=== PATIENT | female | born 1945 | race Caucasian/White ===

== ENCOUNTER 2016-05-14 13:57 | Emergency (ER) | payer MEDICAID, MEDICARE ==
[2016-05-14] MEDS ORDERED: PROMETHAZINE HCL 25 MG/ML VIAL IM ONE (14:34)
[2016-05-14 14:48] LABS: HEMATOCRIT 41.8 % (35.0-47.0); HEMOGLOBIN 13.9 gm/dl (11.6-16.0); LYMPH % 13.1 % (16-45); MEAN CELL VOLUME 99.8 fl (81-97); MEAN CORPUSCULAR HEMOGLOBIN 33.2 pg (27-33); MEAN CORPUSCULAR HGB CONC 33.3 g/dl (32-36); MEAN PLATELET VOLUME 10.5 fl (7.4-10.4); MONO % 7.9 % (0-9); PLATELET COUNT 337 K/uL (130-400); RED BLOOD COUNT 4.19 M/uL (3.80-5.40); RED CELL DISTRIBUTION WIDTH 14.1 % (11.5-14.5); WHITE BLOOD COUNT W/O DIFF 5.6 K/uL (4.2-12.2)
[2016-05-14 15:04] LABS: ALB/GLOB RATIO 1.4 (1.1-1.8); ALBUMIN 4.5 gm/dL (3.5-5.0); ANION GAP 16.1 (7-16); BLOOD UREA NITROGEN 12 mg/dL (7-17); CARBON DIOXIDE 25.9 mmol/L (22-30); CREATININE 0.6 mg/dL (0.52-1.04); EST GLOMERULAR FILTRATION RATE > 60 ml/min; GLUCOSE,RANDOM 131 mg/dL (70-110); TOTAL PROTEIN 7.7 gm/dL (6.3-8.2)
[2016-05-14 15:05] LABS: ALKALINE PHOSPHATASE 90 U/L (38-126); ALT/SGPT 24 U/L (9-52); AST/SGOT 31 U/L (14-36); BILIRUBIN,TOTAL 0.79 mg/dL (0.2-1.3); LIPASE 122 U/L (23-300)
[2016-05-14] MEDS ORDERED: MORPHINE SULFATE 5 MG/ML PFS IVP ONE ×2 (15:06→18:29)
[2016-05-14] MEDS ORDERED: 0.9 % SODIUM CHLORIDE 1,000 ML BAG IV ONE (15:07)
--- NOTE | 2016-05-14 15:22 | Emergency Department Record ---
History of Present Illness - General Chief Complaint: Abdominal Pain Stated Complaint: ABD APIN Time Seen by Provider: 05/14/16 14:03 Source: Patient, EMS Mode of Arrival: EMS Limitations: No limitations - History of Present Illness Initial Comments: pt brought in for abd pain and vomiting via ems. she was recently hospitalized for abd pain and had a colonoscopy and egd. she has lost 8lbs since fall Complaint: Abdominal pain Onset/Timin -: Week(s) Location: Periumbilical, LLQ Severity: Moderate Quality: Aching, Sharp Consistency: Constant Improves With: Nothing Worsens With: Nothing Associated Symptoms: Nausea - Related Data Home Medications Medication Instructions Recorded Confirmed Last Taken Amlodipine Besylate [Norvasc] 5 mg PO DAILY 12/10/15 05/14/16 1 Day Ago Hydrocodone/Acetaminophen 1 tab PO Q6H PRN 12/10/15 05/14/16 1 Day Ago [Hydrocodon-Acetaminophn 10-325] Oxybutynin Chloride 5 mg PO DAILY 12/10/15 05/14/16 1 Day Ago Quetiapine Fumarate [Seroquel] 25 mg PO DAILY 12/10/15 05/14/16 1 Day Ago Previous Rx's Medication Instructions Recorded Hydrocodone/Acetaminophen [[place] 0.5 - 1 tab PO TID PRN #7 tab 05/14/16 5mg/325mg] Allergies Allergy/AdvReac Type Severity Reaction Status Date / Time ciprofloxacin [From Cipro] Allergy Intermediate HEADACHE Verified 05/14/16 14:06 ciprofloxacin HCl Allergy Intermediate HEADACHE Verified 05/14/16 14:06 [From Cipro] Penicillins Allergy Intermediate RASH Verified 05/14/16 14:06 codeine AdvReac Severe PT UNSURE Verified 05/14/16 14:06 OF REACTION hydromorphone HCl AdvReac HYPERSENSIT Verified 05/14/16 14:06 [From Dilaudid] IVITY Travel Screening - Travel/Exposure Within Last 30 Days Have you traveled within the last 30 days?: No - Travel/Exposure Within Last Year Have you traveled outside the [place] in the last year?: No - Additonal Travel Details Have you been exposed to anyone with a communicable illness?: No - Travel Symptoms Symptom Screening: None Review of Systems Reviewed: No additional complaints except as noted below Constitutional: Reports: As per HPI. Denies: Chills, Fever, Malaise, Night sweats, Weakness, Weight change Eyes: Reports: As per HPI. Denies: Eye discharge, Eye pain, Photophobia, Vision change ENT: Reports: As per HPI. Denies: Congestion, Dental pain, Ear pain, Epistaxis , Hearing loss, Throat pain Respiratory: Reports: As per HPI. Denies: Cough, Dyspnea, Hemoptysis, Stridor, Wheezes Cardiovascular: Reports: As per HPI. Denies: Arrhythmia, Chest pain, Dyspnea on exertion, Edema, Murmurs, Orthopnea, Palpitations, Paroxysmal nocturnal dyspnea, Rheumatic Fever, Syncope Endocrine: Reports: As per HPI. Denies: Fatigue, Heat or cold intolerance, Polydipsia, Polyuria Gastrointestinal: Reports: As per HPI. Denies: Abdominal pain, Constipation, Diarrhea, Hematemesis, Hematochezia, Melena, Nausea, Vomiting Genitourinary: Reports: As per HPI. Denies: Abnormal menses, Discharge, Dyspareunia, Dysuria, Frequency, Hematuria, Incontinence, Retention, Urgency Musculoskeletal: Reports: As per HPI. Denies: Arthralgia, Back pain, Gout, Joint swelling, Myalgia, Neck pain Skin: Reports: As per HPI. Denies: Bruising, Change in color, Change in hair/ nails, Lesions, Pruritus, Rash Neurological: Reports: As per HPI. Denies: Abnormal gait, Confusion, Headache, Numbness, Paresthesias, Seizure, Tingling, Tremors, Vertigo, Weakness Psychiatric: Reports: As per HPI. Denies: Anxiety, Auditory hallucinations, Depression, Homicidal thoughts, Suicidal thoughts, Visual hallucinations Hematological/Lymphatic: Reports: As per HPI. Denies: Anemia, Blood Clots, Easy bleeding, Easy bruising, Swollen glands Past Medical History - SOCIAL HISTORY Smoking Status: Never smoker Alcohol Use: None Drug Use: None - RESPIRATORY Hx Respiratory Disorders: No - CARDIOVASCULAR Hx Cardio Disorders: Yes Hx Hypertension: Yes - NEURO Hx Neuro Disorders: Yes Hx Dizziness: Yes - GI Hx GI Disorders: Yes Hx GI Bleed: Yes (x2) Hx Pancreatitis: Yes - Hx Genitourinary Disorders: Yes Hx Bladder Problem: Yes (prolapse) - ENDOCRINE Hx Endocrine Disorders: No - MUSCULOSKELETAL Hx Musculoskeletal Disorders: Yes Hx Arthritis: Yes - PSYCH Hx Psych Problems: Yes Hx Anxiety: Yes Hx Depression: Yes - HEMATOLOGY/ONCOLOGY Hx Hematology/Oncology Disorders: Yes Hx Blood Transfusions: Yes Family Medical History Any Significant Family History?: Yes Hx Cancer: Father Hx Heart Disease: Father Physical Exam - General General Appearance: Alert, Oriented x3, Cooperative, Mild distress - Head Head exam: Normal inspection - Eye Eye exam: Normal appearance, PERRL, EOMI Pupils: Normal accommodation - ENT ENT exam: Normal exam, Mucous membranes dry, Normal external ear exam, Normal orophraynx Ear exam: Normal external inspection. negative: External canal tenderness Nasal Exam: Normal inspection. negative: Discharge, Sinus tenderness Mouth exam: Normal external inspection, Tongue normal Teeth exam: Normal inspection. negative: Dental caries Throat exam: Normal inspection. negative: Tonsillar erythema, Tonsillar exudate - Neck Neck exam: Normal inspection, Full ROM. negative: Tenderness - Respiratory Respiratory exam: Normal lung sounds bilaterally. negative: Respiratory distress - Cardiovascular Cardiovascular Exam: Normal rhythm, Normal heart sounds, Tachycardia - GI/Abdominal GI/Abdominal exam: Soft, Normal bowel sounds, Tenderness - Rectal Rectal exam: Deferred - exam: Deferred - Extremities Extremities exam: Normal inspection, Full ROM, Normal capillary refill. negative: Tenderness - Back Back exam: Reports: Normal inspection, Full ROM. Denies: Muscle spasm, Rash noted, Tenderness - Neurological Neurological exam: Alert, CN II-XII intact, Normal gait, Oriented X3 - Psychiatric Psychiatric exam: Normal affect, Normal mood - Skin Skin exam: Dry, Intact, Normal color, Warm Course Vital Signs 05/14/16 13:59 Temperature 99.7 F H Pulse Rate 126 H Respiratory 20 Rate Blood Pressure 132/92 Pulse Ox 98 - Reevaluation(s) Reevaluation #1: 05/14/16 18:34 [facility] records were reviewed and pt had recent neg ct, colonoscopy and workup. pt is out of her norco. Medical Decision Making - Lab Data Result diagrams: 05/14/16 14:35 05/14/16 14:35 Lab Results 05/14/16 Range/Units 14:35 WBC 5.6 (4.2-12.2) K/uL RBC 4.19 (3.80-5.40) M/uL Hgb 13.9 (11.6-16.0) gm/dl Hct 41.8 (35.0-47.0) % MCV 99.8 H (81-97) fl MCH 33.2 H (27-33) pg MCHC 33.3 (32-36) g/dl RDW 14.1 (11.5-14.5) % Plt Count 337 (130-400) K/uL MPV 10.5 H (7.4-10.4) fl Gran % 79.0 (47-80) % Lymphocytes % 13.1 L (16-45) % Monocytes % 7.9 (0-9) % Eosinophils % 0.0 (0-6) % Basophils % 0.0 (0-6) % Disposition Disposition: Discharge Clinical Impression: Abdominal pain Qualifiers: Abdominal location: generalized Qualified Code(s): R10.84 - Generalized abdominal pain Disposition: Home, Self-Care Condition: (1) Good Instructions: Abdominal Pain (ED) Additional Instructions: follow up with family doctor tomorrow. return sooner if worse. Prescriptions: Hydrocodone/Acetaminophen [[place] 5mg/325mg] 0.5 - 1 tab PO TID PRN #7 tab PRN Reason: Pain - General Forms: Patient Portal Access
[2016-05-14 16:13] LABS: URINE APPEARANCE CLEAR; URINE BILIRUBIN NEGATIVE (NEGATIVE); URINE BLOOD NEGATIVE (NEGATIVE); URINE COLOR YELLOW; URINE GLUCOSE (UA) NEGATIVE (NEGATIVE); URINE KETONE NEGATIVE (NEGATIVE); URINE LEUKOCYTE ESTERASE NEGATIVE (NEGATIVE); URINE NITRITE NEGATIVE (NEGATIVE); URINE PROTEIN NEGATIVE (NEGATIVE); URINE UROBILINOGEN 0.2 E.U./dL (0.20 - 1.00)
[2016-05-14 18:09] LABS: INFLUENZA A NEGATIVE (NEGATIVE); INFLUENZA B NEGATIVE (NEGATIVE)
[2016-05-14] MEDS ORDERED: HYDROCODONE/APAP 5/325MG TABLET PO ONE (18:41)
[2016-05-14] MEDS ORDERED: ACETAMINOPHEN 325 MG TAB PO ONE (18:44)
== END 2016-05-14 19:02 | disposition home or self-care (01) ==
LOC: ER 13:57
DX: R10.84 Generalized abdominal pain (principal); R11.2 Nausea with vomiting, unspecified; I10 Essential (primary) hypertension
CPT/HCPCS: 99284 ×2; 96376; 96374; 96372; 83605; 83690; 85025; 80053; 81003; 87400; 74022; J2270; J2550; J7030

== ENCOUNTER 2016-05-15 17:43 | Emergency (ER) | payer MEDICARE ==
--- NOTE | 2016-05-15 18:12 | Emergency Department Record ---
History of Present Illness - General Chief Complaint: Chest Pain Stated Complaint: CHEST PAIN Time Seen by Provider: 05/15/16 18:05 Source: Patient Mode of Arrival: Ambulatory Limitations: No limitations - History of Present Illness Initial Comments: The patient is here due to a 2 day hx of substernal L CP. The pain is described as a sharp stabbing pain at times and squeezing at times. She denies any nausea , SCOT, SOB, or sweating with it. The pain seems to be worse with bending and twisting. The patient also has been having palpitations for the last week also. She states she has been on 40 mg of Corgard for the last 12 years and now her [place] refusing to [place] for it. She has been out of the medication for a little over a week. She denies any hx of any cardiac issues and did have a neg Nuclear Stress test last year. MD Complaint: Chest pain Onset/Timin -: Days(s) Onset: During rest Pain Location: Substernal, Left chest Severity: Moderate Severity scale (1-10): 9 Quality: Sharp Consistency: Constant Improves With: Nothing Worsens With: Nothing Treatments Prior to Arrival: None - Related Data Home Medications Medication Instructions Recorded Confirmed Last Taken Amlodipine Besylate [Norvasc] 5 mg PO DAILY 12/10/15 05/15/16 1 Day Ago Hydrocodone/Acetaminophen 1 tab PO Q6H PRN 12/10/15 05/15/16 1 Day Ago [Hydrocodon-Acetaminophn 10-325] Oxybutynin Chloride 5 mg PO DAILY 12/10/15 05/15/16 1 Day Ago Quetiapine Fumarate [Seroquel] 25 mg PO DAILY 12/10/15 05/15/16 1 Day Ago Previous Rx's Medication Instructions Recorded Hydrocodone/Acetaminophen [[place] 0.5 - 1 tab PO TID PRN #7 tab 05/14/16 5mg/325mg] Metoprolol Tartrate [Lopressor] 50 mg PO BID #30 tablet 05/15/16 Allergies Allergy/AdvReac Type Severity Reaction Status Date / Time ciprofloxacin [From Cipro] Allergy Intermediate HEADACHE Verified 05/14/16 14:06 ciprofloxacin HCl Allergy Intermediate HEADACHE Verified 05/14/16 14:06 [From Cipro] Penicillins Allergy Intermediate RASH Verified 05/14/16 14:06 codeine AdvReac Severe PT UNSURE Verified 05/14/16 14:06 OF REACTION hydromorphone HCl AdvReac HYPERSENSIT Verified 05/14/16 14:06 [From Dilaudid] IVITY Travel Screening - Travel/Exposure Within Last 30 Days Have you traveled within the last 30 days?: No Review of Systems Constitutional: Denies: Chills, Fever Eyes: Denies: Eye discharge ENT: Denies: Congestion Respiratory: Denies: Cough, Dyspnea Cardiovascular: Reports: Chest pain. Denies: Arrhythmia, Dyspnea on exertion Endocrine: Denies: Fatigue Gastrointestinal: Reports: Abdominal pain. Denies: Diarrhea, Vomiting Genitourinary: Denies: Dysuria Musculoskeletal: Denies: Back pain Skin: Denies: Bruising Past Medical History - SOCIAL HISTORY Smoking Status: Never smoker Alcohol Use: None Drug Use: None - RESPIRATORY Hx Respiratory Disorders: No - CARDIOVASCULAR Hx Cardio Disorders: Yes Hx Hypertension: Yes - NEURO Hx Neuro Disorders: Yes Hx Dizziness: Yes - GI Hx GI Disorders: Yes Hx GI Bleed: Yes (x2) Hx Pancreatitis: Yes - Hx Genitourinary Disorders: Yes Hx Bladder Problem: Yes (prolapse) - ENDOCRINE Hx Endocrine Disorders: No - MUSCULOSKELETAL Hx Musculoskeletal Disorders: Yes Hx Arthritis: Yes - PSYCH Hx Psych Problems: Yes Hx Anxiety: Yes Hx Depression: Yes - HEMATOLOGY/ONCOLOGY Hx Hematology/Oncology Disorders: Yes Hx Blood Transfusions: Yes Family Medical History Any Significant Family History?: Yes Hx Cancer: Father Hx Heart Disease: Father Physical Exam - General General Appearance: Alert, Oriented x3, Cooperative, No acute distress - Head Head exam: Atraumatic, Normocephalic, Normal inspection - Eye Eye exam: Normal appearance, PERRL - ENT Throat exam: Normal inspection. negative: Tonsillar erythema, Tonsillar exudate - Neck Neck exam: Normal inspection, Full ROM. negative: Tenderness - Respiratory Respiratory exam: Normal lung sounds bilaterally, Chest wall tenderness (The pain is 100% reproducible with palpation of her L anterior chest wall.). negative: Respiratory distress - Cardiovascular Cardiovascular Exam: Regular rate, Normal rhythm, Normal heart sounds - GI/Abdominal GI/Abdominal exam: Soft, Normal bowel sounds. negative: Tenderness - Extremities Extremities exam: Normal inspection, Full ROM, Normal capillary refill. negative: Tenderness - Neurological Neurological exam: Normal gait. negative: Abnormal gait Course Vital Signs 05/15/16 17:58 Temperature 99.0 F Pulse Rate 115 H Respiratory 20 Rate Blood Pressure 150/91 Pulse Ox 98 - Reevaluation(s) Reevaluation #1: The patient is resting quietly and denies any new symptoms. She is requesting an IV narcotic for her chronic pain syndrome. I did explain to her that her tests are all WNL. I do feel the problem of her tachycardia and palpitations are due to her running out of her Corgard. I did consult with Dr. Schilling and he would like to start the patient on Lopressor 50 mg BID. 05/15/16 19:41 Medical Decision Making - Data Complexity MDM Data: Labs Ordered and/or Reviewed, EKG Ordered and/or Reviewed - Lab Data Result diagrams: 05/15/16 18:40 05/15/16 18:40 - EKG Data -: EKG Interpreted by Me EKG: No Acute Changes, Unchanged From Previous Disposition Disposition: Discharge Clinical Impression: Chronic pain Qualifiers: Chronic pain type: chronic pain syndrome Qualified Code(s): G89.4 - Chronic pain syndrome Disposition: Home, Self-Care Condition: (1) Good Instructions: Chest Wall Pain (ED) Additional Instructions: Please continue your chronic pain medicines. Start the Lopressor as directed. Please see your PCP on Friday as planned. Prescriptions: Metoprolol Tartrate [Lopressor] 50 mg PO BID #30 tablet Forms: Patient Portal Access Time of Disposition: 19:47
[2016-05-15] MEDS ORDERED: ASPIRIN 325 MG TABLET PO ONE (18:23)
[2016-05-15] MEDS ORDERED: METOPROLOL TART 5 MG/5 ML VIAL IV ONE (18:29)
[2016-05-15 18:48] LABS: BASO % 0.2 % (0-6); EOS % 0.2 % (0-6); GRAN % 74.8 % (47-80); HEMATOCRIT 39.2 % (35.0-47.0); HEMOGLOBIN 12.8 gm/dl (11.6-16.0); LYMPH % 16.4 % (16-45); MEAN CELL VOLUME 100.3 fl (81-97); MEAN CORPUSCULAR HEMOGLOBIN 32.7 pg (27-33); MEAN CORPUSCULAR HGB CONC 32.7 g/dl (32-36); MEAN PLATELET VOLUME 9.8 fl (7.4-10.4); MONO % 8.4 % (0-9); PLATELET COUNT 318 K/uL (130-400); RED BLOOD COUNT 3.91 M/uL (3.80-5.40); RED CELL DISTRIBUTION WIDTH 13.8 % (11.5-14.5); WHITE BLOOD COUNT W/O DIFF 6.4 K/uL (4.2-12.2)
[2016-05-15 19:00] LABS: ANION GAP 18.1 (7-16); BLOOD UREA NITROGEN 9 mg/dL (7-17); CARBON DIOXIDE 22.9 mmol/L (22-30); CREATINE PHOSPHOKINASE 118 U/L (30-135); CREATININE 0.6 mg/dL (0.52-1.04); EST GLOMERULAR FILTRATION RATE > 60 ml/min; GLUCOSE,RANDOM 145 mg/dL (70-110)
[2016-05-15 19:02] LABS: INR 0.95; PARTIAL THROMBOPLASTIN TIME 25.4 SECONDS (24.5-39.1); PROTHROMBIN TIME (PATIENT) 10.7 SECONDS (9.5-12.1)
[2016-05-15 19:13] LABS: CKMB 2.6 ug/L (0-6); TROPONIN I < 0.012 ng/mL (0.00-0.034)
[2016-05-15] MEDS ORDERED: HYDROCODONE/APAP 10/325 TABLET PO ONE (20:19)
== END 2016-05-15 20:29 | disposition home or self-care (01) ==
LOC: ER 17:43
DX: G89.4 Chronic pain syndrome (principal); R07.2 Precordial pain; I10 Essential (primary) hypertension
CPT/HCPCS: 99284 ×2; 96374; 82550; 85025; 85730; 85610; 82553; 84484; 80048; 93005; 93010; J3490

== ENCOUNTER 2016-09-11 16:33 | Observation (INO) | payer MEDICARE ==
[2016-09-11] MEDS ORDERED: METOPROLOL TART 50 MG TABLET PO ONE (16:59)
[2016-09-11] MEDS ORDERED: HYDROCODONE/APAP 5/325MG TABLET PO ONE (17:00)
--- NOTE | 2016-09-11 17:04 | Emergency Department Record ---
History of Present Illness - General Chief Complaint: Abdominal Pain Stated Complaint: CHEST PAIN Time Seen by Provider: 09/11/16 16:55 Source: Patient Mode of Arrival: EMS Limitations: No limitations - History of Present Illness Initial Comments: The patient is here due to having abdominal pain for 3 days. The pain is in the epigastric area and is aching at times. She denies any vomiting but has been nauseated and did have one loose stool today. The patient does have a hx of pancreatitis and this feels like that. She states the pain does radiate to her chest at times but presently denies any CP or SOB. The patient also states she is out of all her medicines including [place]. The patient denies any hx of any abdominal surgeries. MD Complaint: Abdominal pain Onset/Timin -: Days(s) Location: Epigastric, LUQ Radiation: Chest Severity: Moderate Quality: Aching Consistency: Constant Improves With: Nothing Worsens With: Nothing Associated Symptoms: Denies other symptoms Treatments Prior to Arrival: Other - Related Data Home Medications Medication Instructions Recorded Confirmed Last Taken Amlodipine Besylate [Norvasc] 5 mg PO DAILY 12/10/15 09/11/16 1 Day Ago ~05/13/16 Oxybutynin Chloride 5 mg PO DAILY 12/10/15 09/11/16 1 Day Ago ~05/13/16 Previous Rx's Medication Instructions Recorded Hydrocodone/Acetaminophen [[place] 0.5 - 1 tab PO TID PRN #7 tab 05/14/16 5mg/325mg] Metoprolol Tartrate [Lopressor] 50 mg PO BID #30 tablet 05/15/16 Allergies Allergy/AdvReac Type Severity Reaction Status Date / Time ciprofloxacin [From Cipro] Allergy Intermediate HEADACHE Verified 09/11/16 16:39 ciprofloxacin HCl Allergy Intermediate HEADACHE Verified 09/11/16 16:39 [From Cipro] Penicillins Allergy Intermediate RASH Verified 09/11/16 16:39 codeine AdvReac Severe PT UNSURE Verified 09/11/16 16:39 OF REACTION hydromorphone HCl AdvReac HYPERSENSIT Verified 09/11/16 16:39 [From Dilaudid] IVITY Travel Screening - Travel/Exposure Within Last 30 Days Have you traveled within the last 30 days?: No - Travel/Exposure Within Last Year Have you traveled outside the [place] in the last year?: No - Additonal Travel Details Have you been exposed to anyone with a communicable illness?: No - Travel Symptoms Symptom Screening: None Review of Systems Constitutional: Denies: Chills, Fever Eyes: Denies: Eye discharge ENT: Denies: Congestion Respiratory: Denies: Cough, Dyspnea Cardiovascular: Denies: Arrhythmia Endocrine: Reports: Fatigue Gastrointestinal: Reports: Abdominal pain, Diarrhea, Nausea. Denies: Vomiting Genitourinary: Denies: Dysuria Musculoskeletal: Denies: Arthralgia Past Medical History - SOCIAL HISTORY Smoking Status: Never smoker Alcohol Use: None Drug Use: None - RESPIRATORY Hx Respiratory Disorders: No - CARDIOVASCULAR Hx Cardio Disorders: Yes Hx Hypertension: Yes - NEURO Hx Neuro Disorders: Yes Hx Dizziness: Yes - GI Hx GI Disorders: Yes Hx GI Bleed: Yes (x2) Hx Pancreatitis: Yes - Hx Genitourinary Disorders: Yes Hx Bladder Problem: Yes (prolapse) - ENDOCRINE Hx Endocrine Disorders: No - MUSCULOSKELETAL Hx Musculoskeletal Disorders: Yes Hx Arthritis: Yes - PSYCH Hx Psych Problems: Yes Hx Anxiety: Yes Hx Depression: Yes - HEMATOLOGY/ONCOLOGY Hx Hematology/Oncology Disorders: Yes Hx Blood Transfusions: Yes Family Medical History Any Significant Family History?: Yes Hx Cancer: Father Hx Heart Disease: Father Physical Exam - General General Appearance: Alert, Oriented x3, Cooperative, No acute distress - Head Head exam: Atraumatic, Normocephalic, Normal inspection - Eye Eye exam: Normal appearance, PERRL - Neck Neck exam: Normal inspection, Full ROM. negative: Tenderness - Respiratory Respiratory exam: Normal lung sounds bilaterally. negative: Respiratory distress - Cardiovascular Cardiovascular Exam: Regular rate, Normal rhythm, Normal heart sounds - GI/Abdominal GI/Abdominal exam: Soft, Normal bowel sounds. negative: Rebound, Rigid, Tenderness - Extremities Extremities exam: Normal inspection, Full ROM, Normal capillary refill. negative: Tenderness - Neurological Neurological exam: Alert. negative: Motor sensory deficit - Psychiatric Psychiatric exam: negative: Anxious, Depressed Course Vital Signs 09/11/16 16:44 Temperature 98.7 F Pulse Rate 104 H Respiratory 20 Rate Blood Pressure 151/91 Pulse Ox 99 - Reevaluation(s) Reevaluation #1: The patient is doing better. She denies any CP or SOB. She is still having some L sided AP but it is improved. She did drink her contrast for the CT. 09/11/16 18:36 Reevaluation #2: The patient is doing very well at this time. She is waiting on her abdominal CT and repeat cardiac enzymes. Her care will be turned over to Dr. Powell at 19:00 due to shift change. 09/11/16 18:57 Medical Decision Making - Data Complexity MDM Data: Labs Ordered and/or Reviewed, EKG Ordered and/or Reviewed - Lab Data Result diagrams: 09/11/16 16:45 09/11/16 16:45 - EKG Data -: EKG Interpreted by Me EKG: No Acute Changes, Unchanged From Previous Disposition Forms: Patient Portal Access
[2016-09-11 17:12] LABS: HEMATOCRIT 44.1 % (35.0-47.0); HEMOGLOBIN 14.1 gm/dl (11.6-16.0); MEAN CELL VOLUME 95.7 fl (81-97); MEAN CORPUSCULAR HEMOGLOBIN 30.6 pg (27-33); MEAN PLATELET VOLUME 10.2 fl (7.4-10.4); PLATELET COUNT 457 K/uL (130-400); RED BLOOD COUNT 4.61 M/uL (3.80-5.40); RED CELL DISTRIBUTION WIDTH 14.3 % (11.5-14.5); WHITE BLOOD COUNT W/O DIFF 5.6 K/uL (4.2-12.2)
[2016-09-11] MEDS ORDERED: 0.9 % SODIUM CHLORIDE 1,000 ML BAG IV ONE (17:14)
[2016-09-11 17:21] LABS: PLATELET ESTIMATE NORMAL (NORMAL)
[2016-09-11 17:24] LABS: ALBUMIN 5.1 gm/dL (3.5-5.0); ALKALINE PHOSPHATASE 109 U/L (38-126); ALT/SGPT 18 U/L (9-52); ANION GAP 18.1 (7-16); AST/SGOT 37 U/L (14-36); BILIRUBIN,TOTAL 0.64 mg/dL (0.2-1.3); BLOOD UREA NITROGEN 19 mg/dL (7-17); CARBON DIOXIDE 21.9 mmol/L (22-30); CREATINE PHOSPHOKINASE 212 U/L (30-135); CREATININE 0.7 mg/dL (0.52-1.04); EST GLOMERULAR FILTRATION RATE > 60 ml/min; GLUCOSE,RANDOM 139 mg/dL (70-110); LIPASE 201 U/L (23-300); TOTAL PROTEIN 9.1 gm/dL (6.3-8.2)
[2016-09-11 17:35] LABS: CKMB 7.3 ug/L (0-6)
[2016-09-11 17:39] LABS: TROPONIN I < 0.012 ng/mL (0.00-0.034)
[2016-09-11] MEDS ORDERED: POTASSIUM CHLORIDE 40 MEQ/15ML 40 MEQ/15 ML ML PO ONE (17:41)
[2016-09-11] MEDS ORDERED: POTASSIUM CHLORIDE 20 MEQ TABLET PO ONE (17:51)
[2016-09-11] MEDS ORDERED: ONDANSETRON HCL IV 4 MG/2 ML VIAL IVP ONE (18:35)
[2016-09-11 21:00] LABS: CREATINE PHOSPHOKINASE 285 U/L (30-135)
[2016-09-11 21:12] LABS: CKMB 8.3 ug/L (0-6)
[2016-09-11 21:23] LABS: TROPONIN I < 0.012 ng/mL (0.00-0.034)
[2016-09-11 21:32] LABS: CKMB RELATIVE INDEX 2.91 % (0-4)
[2016-09-11] MEDS ORDERED: MORPHINE SULFATE 5 MG/ML PFS IVP ONE (21:38)
--- NOTE | 2016-09-11 21:53 | Emergency Department Record ---
History of Present Illness - General Chief Complaint: Abdominal Pain Stated Complaint: CHEST PAIN Time Seen by Provider: 09/11/16 16:55 Source: Patient Mode of Arrival: EMS Limitations: No limitations - History of Present Illness MD Complaint: Abdominal pain Onset/Timin -: Days(s) Location: Epigastric, LUQ Radiation: Chest Severity: Moderate Quality: Aching Consistency: Constant Improves With: Nothing Worsens With: Nothing Associated Symptoms: Denies other symptoms Treatments Prior to Arrival: Other - Related Data Patient : No Home Medications Medication Instructions Recorded Confirmed Last Taken Amlodipine Besylate [Norvasc] 5 mg PO DAILY 12/10/15 09/11/16 1 Day Ago ~05/13/16 Oxybutynin Chloride 5 mg PO DAILY 12/10/15 09/11/16 1 Day Ago ~05/13/16 Previous Rx's Medication Instructions Recorded Hydrocodone/Acetaminophen [[place] 0.5 - 1 tab PO TID PRN #7 tab 05/14/16 5mg/325mg] Metoprolol Tartrate [Lopressor] 50 mg PO BID #30 tablet 05/15/16 Allergies Allergy/AdvReac Type Severity Reaction Status Date / Time ciprofloxacin [From Cipro] Allergy Intermediate HEADACHE Verified 09/11/16 16:39 ciprofloxacin HCl Allergy Intermediate HEADACHE Verified 09/11/16 16:39 [From Cipro] Penicillins Allergy Intermediate RASH Verified 09/11/16 16:39 codeine AdvReac Severe PT UNSURE Verified 09/11/16 16:39 OF REACTION hydromorphone HCl AdvReac HYPERSENSIT Verified 09/11/16 16:39 [From Dilaudid] IVITY Travel Screening - Travel/Exposure Within Last 30 Days Have you traveled within the last 30 days?: No - Travel/Exposure Within Last Year Have you traveled outside the [place] in the last year?: No - Additonal Travel Details Have you been exposed to anyone with a communicable illness?: No - Travel Symptoms Symptom Screening: None Review of Systems Constitutional: Denies: Chills, Fever Eyes: Denies: Eye discharge ENT: Denies: Congestion Respiratory: Denies: Cough, Dyspnea Cardiovascular: Denies: Arrhythmia Endocrine: Reports: Fatigue Gastrointestinal: Reports: Abdominal pain, Diarrhea, Nausea. Denies: Vomiting Genitourinary: Denies: Dysuria Musculoskeletal: Denies: Arthralgia Past Medical History - SOCIAL HISTORY Smoking Status: Never smoker Alcohol Use: None Drug Use: None - RESPIRATORY Hx Respiratory Disorders: No - CARDIOVASCULAR Hx Cardio Disorders: Yes Hx Hypertension: Yes - NEURO Hx Neuro Disorders: Yes Hx Dizziness: Yes - GI Hx GI Disorders: Yes Hx GI Bleed: Yes (x2) Hx Pancreatitis: Yes - Hx Genitourinary Disorders: Yes Hx Bladder Problem: Yes (prolapse) - ENDOCRINE Hx Endocrine Disorders: No - MUSCULOSKELETAL Hx Musculoskeletal Disorders: Yes Hx Arthritis: Yes - PSYCH Hx Psych Problems: Yes Hx Anxiety: Yes Hx Depression: Yes - HEMATOLOGY/ONCOLOGY Hx Hematology/Oncology Disorders: Yes Hx Blood Transfusions: Yes Family Medical History Any Significant Family History?: Yes Hx Cancer: Father Hx Heart Disease: Father Physical Exam - General Limitations: No limitations Course Vital Signs 09/11/16 09/11/16 16:44 19:40 Temperature 98.7 F Pulse Rate 104 H Respiratory 20 Rate Blood Pressure 151/91 Blood Pressure 149/84 [Left Arm] Pulse Ox 99 - Reevaluation(s) Reevaluation #1: 09/11/16 21:40 pt continues to have abd pain. 09/11/16 21:41 pt has inc cpk and mb but normal troponin Medical Decision Making - Lab Data Result diagrams: 09/11/16 16:45 09/11/16 16:45 Lab Results 09/11/16 09/11/16 09/11/16 Range/Units 16:45 16:45 16:45 WBC 5.6 (4.2-12.2) K/uL RBC 4.61 (3.80-5.40) M/uL Hgb 14.1 (11.6-16.0) gm/dl Hct 44.1 (35.0-47.0) % MCV 95.7 (81-97) fl MCH 30.6 (27-33) pg MCHC 32.0 (32-36) g/dl RDW 14.3 (11.5-14.5) % Plt Count 457 H (130-400) K/uL MPV 10.2 (7.4-10.4) fl Neutrophils % 83.0 H (47-80) % Eosinophils % Not Reportable Basophils % Not Reportable Lymphocytes 11.0 L (16-45) % Monocytes 6.0 (0-9) % Platelet Estimate Normal (NORMAL) RBC Morphology Normal Sodium 143 (136-145) mmol/L Potassium 3.2 L (3.5-5.1) mmol/L Chloride 103 (98-107) mmol/L Carbon Dioxide 21.9 L (22-30) mmol/L Anion Gap 18.1 H (7-16) BUN 19 H (7-17) mg/dL Creatinine 0.7 (0.52-1.04) mg/dL Estimated GFR > 60 ml/min Random Glucose 139 H (70-110) mg/dL Lactic Acid (0.7-2.1) mmol/L Calcium 10.4 H (8.5-10.1) mg/dL Total Bilirubin 0.64 (0.2-1.3) mg/dL Direct Bilirubin 0.0 (0-0.3) mg/dL AST 37 H (14-36) U/L ALT 18 (9-52) U/L Alkaline Phosphatase 109 (38-126) U/L Creatine Kinase 212 H 212 H (30-135) U/L CK-MB (CK-2) 7.3 H (0-6) ug/L CK-MB (CK-2) Rel Index 3.40 (0-4) % Troponin I < 0.012 (0.00-0.034) ng/mL Total Protein 9.1 H (6.3-8.2) gm/dL Albumin 5.1 H (3.5-5.0) gm/dL Lipase 201 (23-300) U/L 09/11/16 09/11/16 Range/Units 18:33 20:46 WBC (4.2-12.2) K/uL RBC (3.80-5.40) M/uL Hgb (11.6-16.0) gm/dl Hct (35.0-47.0) % MCV (81-97) fl MCH (27-33) pg MCHC (32-36) g/dl RDW (11.5-14.5) % Plt Count (130-400) K/uL MPV (7.4-10.4) fl Neutrophils % (47-80) % Eosinophils % Basophils % Lymphocytes (16-45) % Monocytes (0-9) % Platelet Estimate (NORMAL) RBC Morphology Sodium (136-145) mmol/L Potassium (3.5-5.1) mmol/L Chloride (98-107) mmol/L Carbon Dioxide (22-30) mmol/L Anion Gap (7-16) BUN (7-17) mg/dL Creatinine (0.52-1.04) mg/dL Estimated GFR ml/min Random Glucose (70-110) mg/dL Lactic Acid 2.0 (0.7-2.1) mmol/L Calcium (8.5-10.1) mg/dL Total Bilirubin (0.2-1.3) mg/dL Direct Bilirubin (0-0.3) mg/dL AST (14-36) U/L ALT (9-52) U/L Alkaline Phosphatase (38-126) U/L Creatine Kinase 285 H (30-135) U/L CK-MB (CK-2) 8.3 H (0-6) ug/L CK-MB (CK-2) Rel Index 2.91 (0-4) % Troponin I < 0.012 (0.00-0.034) ng/mL Total Protein (6.3-8.2) gm/dL Albumin (3.5-5.0) gm/dL Lipase (23-300) U/L Disposition Disposition: Admit Clinical Impression: Elevated CK-MB level Abdominal pain Qualifiers: Abdominal location: left upper quadrant Qualified Code(s): R10.12 - Left upper quadrant pain Disposition: Still a Patient at [facility] Decision to Admit: Admit from ER Decision to Admit Date: 09/11/16 Decision to Admit Time: 21:41 Forms: Patient Portal Access
[2016-09-11] MEDS ORDERED: ACETAMINOPHEN 500 MG TABLET PO PRN (22:13)
[2016-09-11] MEDS: SIMVASTATIN 20 MG TABLET PO SCH (23:17)
[2016-09-11] MEDS: METOPROLOL TART 50 MG TABLET PO SCH (23:18)
[2016-09-11] MEDS: TEMAZEPAM 15 MG CAPSULE PO PRN ×2 (23:18→23:49)
[2016-09-11] MEDS: HYDROCODONE/APAP 5/325MG TABLET PO PRN (23:47)
[2016-09-12] MEDS: HYDROCODONE/APAP 5/325MG TABLET PO PRN ×3 (05:44→18:02)
[2016-09-12 05:45] LABS: CKMB 10.9 ug/L (0-6); TROPONIN I 0.016 ng/mL (0.00-0.034)
[2016-09-12] MEDS: PANTOPRAZOLE SODIUM 40 MG TABLET PO SCH (06:53)
--- NOTE | 2016-09-12 07:16 | CT SCAN REPORT ---
EXAM: ABDOMEN AND PELVIS CT WITH IV CONTRAST HISTORY: ACUTE LEFT UPPER QUADRANT ABDOMINAL PAIN. TECHNIQUE: Contiguous axial images from the lung bases to the symphysis pubis were obtained after the uneventful intravenous administration of 80 ml of Omnipaque 300. Oral contrast was also utilized. Comparison: Abdomen and pelvis CT 08/16/06. FINDINGS: Bilateral breast implants. Unilocular cyst posterior segment right lobe of the liver measuring 10 mm. The spleen is unremarkable. The left kidney is normal. There is a unilocular cyst in the mid to lower right kidney measuring 6.5 cm. Smaller cyst in the mid right kidney. Right renal artery aneurysm which is peripherally calcified measuring 1.5 cm probably unchanged. The adrenals and pancreas are unremarkable. The gallbladder is present. Mildly prominent loops of contrast filled jejunum in the left mid abdomen measuring up to 2.9 cm may reflect bolus effect due to the ingested enteric contrast. The colon is not distended and not well evaluated. Mild aortic calcification. The mesenteric vessels are patent. The uterus is present. No free intraperitoneal fluid or adenopathy. End stage arthritic change of the right femoroacetabular joint. No lytic or blastic lesions. IMPRESSION: 1. NO ACUTE INFLAMMATORY PROCESS OF THE ABDOMEN OR PELVIS. 2. SLIGHT PROMINENCE OF THE JEJUNUM IN THE LEFT UPPER QUADRANT COULD REFLECT BOLUS EFFECT OF THE ENTERIC CONTRAST. 3. BENIGN HEPATIC CYST. 4. BENIGN BOSNIAK TYPE 1 RIGHT RENAL CYST. 5. STABLE 1.5 CM RIGHT RENAL ARTERY ANEURYSM. 6. END STAGE ARTHRITIC CHANGE OF THE RIGHT FEMOROACETABULAR JOINT. JOB NUMBER: [id number] [facility]
[2016-09-12] MEDS ORDERED: 0.9 % SODIUM CHLORIDE 1000ML 1,000 ML IV PRN (09:17)
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
[2016-09-12] MEDS: SERTRALINE HCL 50 MG TABLET PO SCH (09:33)
[2016-09-12] MEDS: AMLODIPINE BESYLATE 5MG TAB PO SCH (09:33)
[2016-09-12] MEDS: METOPROLOL TART 50 MG TABLET PO SCH ×2 (09:34→21:54)
[2016-09-12] MEDS ORDERED: ONDANSETRON 4 MG ODT TABLET SL PRN (10:11)
[2016-09-12] MEDS: OXYBUTYNIN CHLORIDE 5MG TABLET PO SCH (10:40)
[2016-09-12] MEDS: ENOXAPARIN 40 MG/0.4 ML SYR SQ SCH (12:02)
[2016-09-12 13:57] LABS: CKMB 15.9 ug/L (0-6); TROPONIN I 0.014 ng/mL (0.00-0.034)
[2016-09-12 13:58] LABS: CKMB 15.9 ug/L (0-6)
[2016-09-12 14:00] LABS: CKMB RELATIVE INDEX 2.1 % (0-4)
[2016-09-12 14:01] LABS: CKMB RELATIVE INDEX 2.1 % (0-4)
[2016-09-12 14:54] LABS: URINE APPEARANCE CLEAR; URINE BILIRUBIN NEGATIVE (NEGATIVE); URINE BLOOD NEGATIVE (NEGATIVE); URINE COLOR YELLOW; URINE GLUCOSE (UA) NEGATIVE (NEGATIVE); URINE KETONE 15 mg/dL (NEGATIVE); URINE LEUKOCYTE ESTERASE NEGATIVE (NEGATIVE); URINE NITRITE NEGATIVE (NEGATIVE); URINE PROTEIN TRACE (NEGATIVE); URINE UROBILINOGEN 0.2 E.U./dL (0.20 - 1.00)
[2016-09-12 14:59] LABS: AMPHETAMINE SCREEN URINE NOT DETECTED; BARBITURATE SCREEN URINE NOT DETECTED; BENZODIAZEPINE SCREEN URINE DETECTED; COCAINE SCREEN URINE NOT DETECTED; METHADONE SCREEN URINE DETECTED; METHAMPHETAMINE SCREEN NOT DETECTED; OPIATE SCREEN URINE DETECTED; OXYCODONE SCREEN URINE DETECTED; PHENCYCLIDINE SCREEN URINE NOT DETECTED; PROPOXYPHENE SCREEN URINE NOT DETECTED; THC SCREEN URINE NOT DETECTED; TRICYCLIC ANTIDEPRESSANT SCRN DETECTED
--- NOTE | 2016-09-12 18:35 | Discharge Summary ---
Providers Discharge Summary Date: 09/12/16 Date of admission: 09/11/16 22:01 Expected Date of Discharge: 09/12/16 Attending physician: YONI JOY Physical Exam - Vital Signs Vital Signs: Vital Signs - Last 24 Hrs Temp Pulse Pulse Resp BP BP BP 09/12/16 16:00 97.0 F L 60 18 155/81 09/12/16 12:00 100.5 F H 80 20 147/85 09/12/16 10:08 100.2 F H 157/76 09/12/16 08:00 100.2 F H 65 18 157/76 09/12/16 07:54 68 16 09/12/16 06:07 84 16 09/12/16 04:13 98.9 F 68 16 158/82 09/11/16 23:59 78 16 09/11/16 23:53 99.4 F 78 16 174/90 09/11/16 22:33 76 16 09/11/16 22:13 101.3 F H 75 16 155/85 Pulse Ox 09/12/16 16:00 98 09/12/16 12:00 98 09/12/16 10:08 09/12/16 08:00 96 09/12/16 07:54 09/12/16 06:07 94 L 09/12/16 04:13 98 09/11/16 23:59 09/11/16 23:53 97 09/11/16 22:33 98 09/11/16 22:13 99 - General General Appearance: Alert, Oriented x3, Cooperative, No acute distress Limitations: No limitations - Head Head exam: Atraumatic, Normocephalic, Normal inspection - Eye Eye exam: Normal appearance, PERRL - Neck Neck exam: Normal inspection, Full ROM. negative: Tenderness - Respiratory Respiratory exam: Normal lung sounds bilaterally. negative: Respiratory distress - Cardiovascular Cardiovascular Exam: Regular rate, Normal rhythm, Normal heart sounds - GI/Abdominal GI/Abdominal exam: Soft, Normal bowel sounds. negative: Rebound, Rigid, Tenderness - Rectal Rectal exam: Deferred - exam: Deferred - Extremities Extremities exam: Normal inspection, Full ROM, Normal capillary refill. negative: Tenderness - Neurological Neurological exam: Alert, Oriented X3. negative: Motor sensory deficit - Psychiatric Psychiatric exam: negative: Anxious, Depressed Hospitalization - Hospitalization Admission Diagnosis: abd pain w elev cpk and ckmb - Problem List/Discharge Diagnosis (1) Abdominal pain Current Visit: Yes Status: Acute Discharge Diagnosis: Abdominal location: left upper quadrant Qualified Code(s): R10.12 - Left upper quadrant pain Base Code: R10.9 - UNSPECIFIED ABDOMINAL PAIN Comment: 09/13/16- functional vs. gastritis vs. gastroparesis vs. other? no h/o abd surgeries. weight is stable from previous admission. - Abdominal CT & CTA: no acute process. normal lactic acid. - egd/colonoscopy 05/17: retanied food in stomach o/w relatively unremarkable. - Continue PPI - anti emetic prn for nausea - smaller, more frequent low fat/fiber meals - only take medications that are prescribed. - keep hydrated - patient is not intersted in any home health services. - follow with primary physician within 3-5 days of discharge. (2) Elevated CK-MB level Current Visit: Yes Status: Acute Base Code: R74.8 - ABNORMAL LEVELS OF OTHER SERUM ENZYMES Comment: 09/13/16- CK-MB & creatinine kinase are trending down. troponin negative x 3. nuclear stress test 03/2015 negative. unremarkable cardiac cath in 2012. EKG: unchanged. Abdominal CT/CTA are negative for any acute process. - patient denies CP, abdominal pain - i suspect elevated CK-MB secondary to drug abuse noting UDS findings. - follow up with primary physician in 3-5 days and return sooner if needed (3) Depression Current Visit: No Status: Acute Discharge Diagnosis: Depression Type: unspecified Qualified Code(s): F32.9 - Major depressive disorder, single episode, unspecified Base Code: F32.9 - MAJOR DEPRESSIVE DISORDER, SINGLE EPISODE, UNSPECIFIED Comment: 09/13/16- continue zoloft. continue with social works recommendations. Provider information on [email or web address]. (4) Full code status Current Visit: No Status: Acute Base Code: Z78.9 - OTHER SPECIFIED HEALTH STATUS Comment: 09/13/16- Patient remained full code status (5) Hypokalemia Current Visit: Yes Status: Acute Base Code: E87.6 - HYPOKALEMIA Comment: : potassium 3.3. Patient given 20 mEq of PO potassium supplementation. - Hospitalization Course Disposition: Home, Self-Care Hospital Course: 71 yo female admitted w/ abdominal pain and elevated CK-MB. PMHx of pancreatitis, bleeding duodenal ulcer, depression, anxiety, arthritis, controlled substance abuse. Upon presentation VS's relatively stable. plt 457, normal wbc, sodium 143, potassium 3.2, BUN 19, glucose 139, lipase & lactic acid normal. Troponin neg x 2, CK-MB 8.3->10.9, creatinine kinase 285->537. Abdominal CT: no acute process , stable r renal arterial aneurysm. EKG: unchanged from 05/2016. Patient admitted noting elevated CK-MB and further medical management. 09/12/16: Patient lying in bed comfortably. Reports abdominal pain in LUQ. Described as sharp. Associated with palpation of area, eating food and stress. Alleviated by decreased oral intake. associated symptoms include decreased oral intake, nausea, and loose stool for the past 2 days. She denies any diarrhea within the past 24 hours. Denies hematemesis, black or bloody stool, pain with urination, fever, chills, vomiting, chest pain, sob, cough, hematuria , or skin changes. States she hasn't been drinking much water and has felt dehydrated due to warm weather. She reports a large amount of stress stating she recently lost her house as she couldn't afford her mortgage. She states she's now without air conditioning. She states she's low on some of her medications and can't afford to pick them up from the pharmacy until she gets her check next Friday. She's unable to tell me which medications. She typically take seroquel for sleep, however quit this two weeks ago. Receiving [place] from primary care provider, states she's now on 10/325 mg qid prn. Denies h/o abdominal surgery. States she [place] [facility] [place] H/o bleeding duodenal ulcer 1-2 years ago. States she avoid nsaids and has been taking PPI therapy regularly. Last nuclear stress test 03/2015- negative. PCP: Dr. Roblero 09/12/16: approached patient about UDS findings. she denies any methadone use. states her friend gave her a valium a few weeks ago. Spoke to Dr. Tony re pt' s elevated CK-MB and normal troponin. He states she had an unremarkable cardiac cath in 2012. patient also had a negative nuclear stress test in 2016. Obtained EGD/colonoscpy report from 05/17 which are relatively unremarkable aside from retained food in stomach indicating possible gastroparesis. Patient w/o vomiting. Tolerated ensure for lunch. Patient was seen by our social work team and provided therapy resources as outpatient. Patient states she can't afford any of her prescription refills until next Friday though believes she won't run out of any of her meds aside from [place]. 09/13/16 patient lying in bed comfortably. no concerns. slept well last night. tolerated breakfast however states it was too cold. no diarrhea or vomiting. abdominal pain has resolved. afebrile. Procedures: Imaging and X-Rays 09/12/16 14:43 ABDOMEN CTA w contrast [CTA] Stat Abnormal Labs: Abnormal Lab Results 09/12/16 09/12/16 09/12/16 Range/Units 05:15 13:29 13:29 Creatine Kinase 537 H 746 H 746 H (30-135) U/L CK-MB (CK-2) 10.9 H 15.9 H 15.9 H (0-6) ug/L Urine Protein (NEGATIVE) Urine Ketones (NEGATIVE) 09/12/16 Range/Units 14:40 Creatine Kinase (30-135) U/L CK-MB (CK-2) (0-6) ug/L Urine Protein Trace H (NEGATIVE) Urine Ketones 15 mg/dl H (NEGATIVE) Condition at Discharge: (2) Stable Discharge Medications - Discharge Medications Prescriptions: Ondansetron [Zofran Odt] 4 mg SL Q8H PRN #5 PRN Reason: Nausea/Vomiting Home Medications: Ambulatory Orders Amlodipine Besylate [Norvasc] 5 mg PO DAILY 12/10/15 [Last Taken 1 Day Ago ~] Oxybutynin Chloride 5 mg PO DAILY 12/10/15 [Last Taken 1 Day Ago ~05/13/16] Hydrocodone/Acetaminophen [[place] 5mg/325mg] 0.5 - 1 tab PO TID PRN #7 tab [Last Taken Unknown] Metoprolol Tartrate [Lopressor] 50 mg PO BID #30 tablet 05/15/16 [Last Taken Unknown] Ondansetron [Zofran Odt] 4 mg SL Q8H PRN #5 09/13/16 [Last Taken Unknown] Discharge Plan - Discharge Instructions Activity at Discharge: Increase Activity as Tolerated Diet at Discharge: Low Fat, Low Cholesterol Instructions: Acute Abdominal Pain (DC) Additional Instructions: Follow up with your doctor within 3-5 days of discharge and sooner re any new or worsening symptoms. Resume daily medications. Use Zofran as needed for any nausea. Please eat smaller, more frequent meals that are low in fat and fiber. this may help with digestion and stomach upset. Trial supplements like Ensure if needed for nutrition. Return to the ED if getting worse Activity as tolerated
[2016-09-12] MEDS: SIMVASTATIN 20 MG TABLET PO SCH (21:54)
[2016-09-13] MEDS: HYDROCODONE/APAP 5/325MG TABLET PO PRN ×3 (00:03→12:20)
[2016-09-13] MEDS: PANTOPRAZOLE SODIUM 40 MG TABLET PO SCH (06:02)
[2016-09-13 06:28] LABS: ANION GAP 9.4 (7-16); BLOOD UREA NITROGEN 12 mg/dL (7-17); CARBON DIOXIDE 23.6 mmol/L (22-30); CREATINE PHOSPHOKINASE 623 U/L (30-135); CREATININE 0.5 mg/dL (0.52-1.04); EST GLOMERULAR FILTRATION RATE > 60 ml/min; GLUCOSE,RANDOM 130 mg/dL (70-110)
[2016-09-13 06:43] LABS: CKMB 13.2 ug/L (0-6)
--- NOTE | 2016-09-13 07:26 | CT ANGIOGRAM REPORT ---
EXAM: CTA OF THE ABDOMEN HISTORY: PAIN WHEN EATING DIFFUSELY THROUGHOUT THE ABDOMEN. TECHNIQUE: Contiguous axial images from the lung bases to the anterior superior iliac crest were obtained after the uneventful intravenous administration 90 ml of Omnipaque 350. Sagittal and coronal two dimensional reformatted images as well as 3D/MIP reformatted images were obtained for better anatomic delineation. Comparison: Abdomen and pelvis CT 08/16/06. FINDINGS: Bilateral breast implants. Small Bochdalek hernia on the left. The lung bases are clear. Evaluation of the solid abdominal visceral organs is compromised due to the arterial phase. Unilocular cyst posterior segment right lobe of liver measuring 9 mm. The spleen is not enlarged and appears homogeneous. Fusiform splenic artery aneurysm measures 7 mm. Unilocular cyst mid right kidney measures 6.9 cm. Right renal artery aneurysm peripherally calcified measures 17 x 11 mm. There may be a small left renal artery aneurysm measuring 5 mm. The adrenals, pancreas, and gallbladder are normal. The visualized loops of small and large bowel are of normal caliber with no bowel wall thickening. The abdominal aorta demonstrates minimal calcification with no dissection or aneurysm. The diameter is as follows: Level of diaphragmatic hiatus: 1.8 cm Level of the lowest left renal artery: 1.6 cm Aortic bifurcation: 1.4 cm Right common iliac artery: 0.9 cm Left common iliac artery: 0.8 cm The celiac artery, superior mesenteric artery, and intramesenteric artery are patent. The right colic, middle colic, and ileocolic arteries are patent. A solitary right renal artery is patent. Two patent left renal arteries. No free intraperitoneal fluid or adenopathy. No lytic or blastic lesion. IMPRESSION: 1. THE ABDOMINAL AORTA MESENTERIC ARTERIES ARE ALL PATENT. 2. NO ACUTE INFLAMMATORY PROCESS OF THE ABDOMEN. NO INTESTINAL OBSTRUCTION. 3. BENIGN BOSNIAK TYPE 1 RIGHT RENAL CYST. 4. SMALL SPLENIC ARTERY ANEURYSM WELL BILATERAL RENAL ARTERY ANEURYSMS. JOB NUMBER: [id number] [facility]
[2016-09-13] MEDS ORDERED: POTASSIUM CHLORIDE 20 MEQ TABLET PO SCH (10:00)
[2016-09-13] MEDS: ENOXAPARIN 40 MG/0.4 ML SYR SQ SCH (10:31)
[2016-09-13] MEDS: OXYBUTYNIN CHLORIDE 5MG TABLET PO SCH (10:32)
[2016-09-13] MEDS: AMLODIPINE BESYLATE 5MG TAB PO SCH (10:32)
[2016-09-13] MEDS: METOPROLOL TART 50 MG TABLET PO SCH (10:32)
[2016-09-13] MEDS: SERTRALINE HCL 50 MG TABLET PO SCH (10:32)
[2016-09-14] MEDS ORDERED: METOPROLOL TART 50 MG TABLET PO ONE (22:32)
[2016-09-14] MEDS ORDERED: HYDROCODONE/APAP 7.5/325MG TABLET PO ONE (22:33)
[2016-09-14] MEDS ORDERED: PANTOPRAZOLE SODIUM 40 MG TABLET PO ONE (22:34)
[2016-09-14] MEDS ORDERED: ONDANSETRON 4 MG ODT TABLET SL ONE (22:34)
[2016-09-14] MEDS ORDERED: SERTRALINE HCL 50 MG TABLET PO SCH (22:45)
[2016-09-14] MEDS ORDERED: AMLODIPINE BESYLATE 5MG TAB PO SCH (22:45)
[2016-09-14] MEDS ORDERED: SIMVASTATIN 20 MG TABLET PO SCH (22:45)
== END 2016-09-13 13:20 | disposition home or self-care (01) ==
LOC: ER 16:33 → MEDSURG 22:01
PROVIDERS: ADMIT Family Medicine; ATTEND Family Medicine
DX: R10.12 Left upper quadrant pain (principal); R74.8 Abnormal levels of other serum enzymes; F32.9 Major depressive disorder, single episode, unspecified; Z79.899 Other long term (current) drug therapy; I10 Essential (primary) hypertension
CPT/HCPCS: 93041; 99285 ×2; 96374; 96375; 82550 ×3; 83605; 83690; 80076; 82553 ×3; 84484 ×2; 80048 ×2; 81003; 80305; 85027; 74175; 74177; 94760; 93005 ×3; 93010 ×3; G0378 ×3; Q9967 ×2; J2405; J3490; J2270; 99217; 99220; J1650; J7030

== ENCOUNTER 2016-09-14 20:07 | Emergency (ER) | payer MEDICARE ==
[2016-09-14] MEDS ORDERED: ASPIRIN 325 MG TABLET PO ONE (20:23)
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
[2016-09-14 20:51] LABS: BASO % 0.1 % (0-6); GRAN % 71.4 % (47-80); HEMATOCRIT 39.3 % (35.0-47.0); HEMOGLOBIN 13.1 gm/dl (11.6-16.0); LYMPH % 17.2 % (16-45); MEAN CELL VOLUME 92.5 fl (81-97); MEAN CORPUSCULAR HEMOGLOBIN 30.8 pg (27-33); MEAN CORPUSCULAR HGB CONC 33.3 g/dl (32-36); MEAN PLATELET VOLUME 10.6 fl (7.4-10.4); MONO % 11.3 % (0-9); PLATELET COUNT 413 K/uL (130-400); RED BLOOD COUNT 4.25 M/uL (3.80-5.40); RED CELL DISTRIBUTION WIDTH 13.3 % (11.5-14.5); WHITE BLOOD COUNT W/O DIFF 7.4 K/uL (4.2-12.2)
[2016-09-14 20:56] LABS: INR 0.95; PARTIAL THROMBOPLASTIN TIME 27.5 SECONDS (24.5-39.1); PROTHROMBIN TIME (PATIENT) 10.7 SECONDS (9.5-12.1)
[2016-09-14] MEDS: NITROGLYCERIN 0.4MG SL TABLET #25 BTL SL PRN ×2 (20:56→21:07)
[2016-09-14 20:57] LABS: D-DIMER 0.32 mg/L FEU (0-0.59)
[2016-09-14 21:26] LABS: BLOOD UREA NITROGEN 15 mg/dL (7-17); CREATININE 0.5 mg/dL (0.52-1.04); EST GLOMERULAR FILTRATION RATE > 60 ml/min; GLUCOSE,RANDOM 125 mg/dL (70-110)
[2016-09-14 21:38] LABS: TROPONIN I < 0.012 ng/mL (0.00-0.034)
[2016-09-14] MEDS ORDERED: METOPROLOL TART 50 MG TABLET PO ONE (22:42)
[2016-09-14] MEDS ORDERED: HYDROCODONE/APAP 7.5/325MG TABLET PO ONE (22:44)
[2016-09-14] MEDS ORDERED: PANTOPRAZOLE SODIUM 40 MG TABLET PO ONE (22:44)
[2016-09-14] MEDS ORDERED: SIMVASTATIN 20 MG TABLET PO SCH (22:45)
[2016-09-14] MEDS ORDERED: SERTRALINE HCL 50 MG TABLET PO SCH (22:45)
[2016-09-14] MEDS ORDERED: AMLODIPINE BESYLATE 5MG TAB PO SCH (22:45)
[2016-09-14] MEDS ORDERED: ONDANSETRON 4 MG ODT TABLET SL ONE (22:45)
[2016-09-14] MEDS ORDERED: SIMVASTATIN 20 MG TABLET PO ONE (22:49)
[2016-09-14] MEDS ORDERED: SERTRALINE HCL 50 MG TABLET PO ONE (22:50)
[2016-09-14] MEDS ORDERED: AMLODIPINE BESYLATE 5MG TAB PO ONE (22:50)
--- NOTE | 2016-09-16 12:44 | RADIOLOGY REPORT ---
EXAM: CHEST, TWO VIEWS HISTORY: PATIENT HAS CHRONIC CHEST PAIN. TECHNIQUE: Two views of the chest were provided along with the comparison study dated 04/17/15. FINDINGS: The cardiomediastinal silhouette is within normal limits for size and contour. The curt appear unremarkable. There is no radiographic evidence of a focal infiltrate or pleural effusion. Postoperative changes of the right shoulder are noted. No pneumothorax is noted. IMPRESSION: NO RADIOGRAPHIC EVIDENCE OF AN ACUTE INTRATHORACIC PROCESS. JOB NUMBER: [id number] [facility]
== END 2016-09-14 23:30 | disposition home or self-care (01) ==
LOC: ER 20:07
DX: G89.29 Other chronic pain (principal); M25.551 Pain in right hip; R07.2 Precordial pain; R53.1 Weakness; R11.0 Nausea; M21.372 Foot drop, left foot; M21.371 Foot drop, right foot; I10 Essential (primary) hypertension; Z73.6 Limitation of activities due to disability; Z74.09 Other reduced mobility
CPT/HCPCS: 71020; 80048; 82553; 84484; 85025; 85379; 85610; 85730; 93005; 93010; 99284

== ENCOUNTER 2016-09-16 20:44 | Emergency (ER) | payer MEDICARE ==
[2016-09-16 21:21] LABS: EOS % 0.3 % (0-6); GRAN % 65.9 % (47-80); HEMATOCRIT 40.6 % (35.0-47.0); HEMOGLOBIN 13.4 gm/dl (11.6-16.0); LYMPH % 23.4 % (16-45); MEAN CELL VOLUME 93.3 fl (81-97); MEAN CORPUSCULAR HEMOGLOBIN 30.8 pg (27-33); MEAN PLATELET VOLUME 10.4 fl (7.4-10.4); MONO % 10.4 % (0-9); PLATELET COUNT 406 K/uL (130-400); RED BLOOD COUNT 4.35 M/uL (3.80-5.40); RED CELL DISTRIBUTION WIDTH 13.7 % (11.5-14.5); WHITE BLOOD COUNT W/O DIFF 7.4 K/uL (4.2-12.2)
[2016-09-16 21:33] LABS: ALB/GLOB RATIO 1.4 (1.1-1.8); ALBUMIN 4.9 gm/dL (3.5-5.0); ALKALINE PHOSPHATASE 98 U/L (38-126); ALT/SGPT 27 U/L (9-52); ANION GAP 13.3 (7-16); AST/SGOT 35 U/L (14-36); BILIRUBIN,TOTAL 0.87 mg/dL (0.2-1.3); BLOOD UREA NITROGEN 13 mg/dL (7-17); CARBON DIOXIDE 21.7 mmol/L (22-30); CREATININE 0.6 mg/dL (0.52-1.04); EST GLOMERULAR FILTRATION RATE > 60 ml/min; GLUCOSE,RANDOM 112 mg/dL (70-110); TOTAL PROTEIN 8.3 gm/dL (6.3-8.2)
[2016-09-16 21:44] LABS: TROPONIN I 0.013 ng/mL (0.00-0.034)
[2016-09-16] MEDS ORDERED: 0.9% SODIUM CHLORIDE 250ML BAG IV ONE (22:49)
[2016-09-16 23:12] LABS: CKMB 4.1 ug/L (0-6)
[2016-09-16 23:34] LABS: THYROID STIMULATING HORMONE 1.65 uIU/ml (0.465-4.68)
[2016-09-17 01:50] LABS: CREATINE PHOSPHOKINASE 69 U/L (30-135)
[2016-09-17 02:03] LABS: CKMB 3.5 ug/L (0-6)
[2016-09-17 02:11] LABS: TROPONIN I < 0.012 ng/mL (0.00-0.034)
[2016-09-17] MEDS ORDERED: ACETAMINOPHEN 325 MG TAB PO ONE (02:44)
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
[2016-09-17] MEDS ORDERED: METOPROLOL TART 50 MG TABLET PO ONE (03:02)
[2016-09-17] MEDS ORDERED: AMLODIPINE BESYLATE 5MG TAB PO ONE (03:02)
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
== END 2016-09-17 10:17 | disposition home or self-care (01) ==
LOC: ER 20:44
DX: R07.9 Chest pain, unspecified (principal); F41.1 Generalized anxiety disorder; F43.0 Acute stress reaction; G89.29 Other chronic pain
CPT/HCPCS: 80053; 82550; 82553; 84443; 84484; 85025; 85379; 93005; 93010; 99284

== ENCOUNTER 2016-11-08 09:18 | Emergency (ER) | payer MEDICARE ==
[2016-11-08] MEDS ORDERED: 0.9 % SODIUM CHLORIDE 1000ML 1,000 ML IV PRN (09:28)
[2016-11-08] MEDS ORDERED: METOPROLOL TART 50 MG TABLET PO ONE (09:33)
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
[2016-11-08 09:40] LABS: BASO % 0.1 % (0-6); EOS % 0.8 % (0-6); GRAN % 69.6 % (47-80); HEMATOCRIT 37.2 % (35.0-47.0); LYMPH % 19.1 % (16-45); MEAN CELL VOLUME 93.7 fl (81-97); MEAN CORPUSCULAR HEMOGLOBIN 30.2 pg (27-33); MEAN CORPUSCULAR HGB CONC 32.3 g/dl (32-36); MEAN PLATELET VOLUME 10.4 fl (7.4-10.4); MONO % 10.4 % (0-9); PLATELET COUNT 542 K/uL (130-400); RED BLOOD COUNT 3.97 M/uL (3.80-5.40); WHITE BLOOD COUNT W/O DIFF 7.2 K/uL (4.2-12.2)
[2016-11-08 09:52] LABS: ANION GAP 12.2 (7-16); BLOOD UREA NITROGEN 17 mg/dL (7-17); CARBON DIOXIDE 27.8 mmol/L (22-30); CREATININE 0.6 mg/dL (0.52-1.04); EST GLOMERULAR FILTRATION RATE > 60 ml/min; GLUCOSE,RANDOM 124 mg/dL (70-110)
[2016-11-08 10:04] LABS: CKMB 2.5 ug/L (0-6); TROPONIN I 0.013 ng/mL (0.00-0.034)
[2016-11-08] MEDS ORDERED: LORAZEPAM 0.5 MG TABLET PO ONE (13:08)
[2016-11-08 13:33] LABS: CKMB 2.5 ug/L (0-6); TROPONIN I 0.054 ng/mL (0.00-0.034)
== END 2016-11-08 15:42 | disposition short-term general hospital (02) ==
LOC: ER 09:18
DX: R00.2 Palpitations (principal); R79.89 Other specified abnormal findings of blood chemistry; I10 Essential (primary) hypertension
CPT/HCPCS: 80048; 82553; 84484; 85025; 85730; 93005; 93010; 99285

== ENCOUNTER 2017-09-01 17:49 | Emergency (ER) | payer MEDICARE ==
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
[2017-09-01] MEDS: ACETAMINOPHEN 325 MG TAB PO ONE ×2 (18:02→18:06)
--- NOTE | 2017-09-03 13:42 | RADIOLOGY REPORT ---
EXAM: CHEST AND LEFT RIBS HISTORY: LEFT RIB PAIN. TECHNIQUE: Frontal view of the chest and multiple views of the left ribs were obtained. Comparison: Chest x-ray 09/14/16. Encounter: Initial. FINDINGS: CHEST: Frontal view of the chest shows no lung consolidation. The cardiomediastinal silhouette is within normal limits. No pleural effusion or pneumothorax. LEFT RIB SERIES: There is slight deformity of the left posterolateral rib from previous fracture. No acute fractures are identified. Surgical plate and screws are again seen in the proximal right humerus. IMPRESSION: 1. NO ACUTE RADIOGRAPHIC ABNORMALITIES IN THE CHEST. 2. OLD LEFT RIB FRACTURE. NO ACUTE DISPLACED LEFT RIB FRACTURES ARE IDENTIFIED. JOB NUMBER: [id number] MTDD
== END 2017-09-01 19:04 | disposition home or self-care (01) ==
LOC: ER 17:49
DX: S20.212A Contusion of left front wall of thorax, initial encounter (principal); W01.190A Fall on same level from slipping, tripping and stumbling with subsequent striking against furniture, initial encounter; Z91.81 History of falling; I10 Essential (primary) hypertension; Y93.E9 Activity, other interior property and clothing maintenance; Y92.003 Bedroom of unspecified non-institutional (private) residence as the place of occurrence of the external cause
CPT/HCPCS: 99283

== ENCOUNTER 2017-09-02 21:06 | Emergency (ER) | payer MEDICARE ==
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
[2017-09-02 21:58] LABS: HEMATOCRIT 40.5 % (35.0-47.0); HEMOGLOBIN 12.7 gm/dl (11.6-16.0); MEAN CORPUSCULAR HEMOGLOBIN 30.1 pg (27-33); MEAN CORPUSCULAR HGB CONC 31.4 g/dl (32-36); MEAN PLATELET VOLUME 10.4 fl (7.4-10.4); PLATELET COUNT 288 K/uL (130-400); RED BLOOD COUNT 4.22 M/uL (3.80-5.40); RED CELL DISTRIBUTION WIDTH 14.8 % (11.5-14.5); WHITE BLOOD COUNT W/O DIFF 10.6 K/uL (4.2-12.2)
[2017-09-02 22:11] LABS: BLOOD UREA NITROGEN 17 mg/dL (8-23); CREATININE 0.8 mg/dL (0.5-0.9); EST GLOMERULAR FILTRATION RATE > 60 mL/min
[2017-09-02 22:12] LABS: TOTAL PROTEIN 7.6 g/dL (6.6-8.7)
[2017-09-02 22:14] LABS: GLUCOSE,RANDOM 114 mg/dL (74-109)
[2017-09-02 22:17] LABS: ALB/GLOB RATIO 1.3 (1.1-1.8); ALBUMIN 4.3 g/dL (4.0-5.0); ALKALINE PHOSPHATASE 130 U/L (35-104); ALT/SGPT 12 U/L (<33); AST/SGOT 23 U/L (10.0-35.0)
[2017-09-02] MEDS: KETOROLAC 30 MG/ML VIAL IVP ONE (22:56)
[2017-09-02] MEDS: FENTANYL PF 100MCG/2ML VIAL IVP ONE (22:57)
--- NOTE | 2017-09-04 15:03 | CT SCAN REPORT ---
EXAM: CT OF THE THORAX WITHOUT IV CONTRAST HISTORY: FALL. TECHNIQUE: CT of the thorax was obtained without intravenous contrast. Comparison: The lung bases from CT abdomen 09/12/16. FINDINGS: There is a tiny left apical pneumothorax. There is a linear band of opacity in the lingula. Minimal dependent atelectasis. Biapical pleural thickening. No pleural effusion. Limited images of the upper abdomen again show a low density lesion in the right lobe of the liver and a right renal cyst. Calcified bilateral renal artery aneurysms are again seen. Review of the bones show minimally displaced left anterolateral rib fractures six, seven, and eight. Bilateral breast implants are seen. There is no mediastinal hematoma. The ascending aorta is mildly dilated at 37 mm. Mild coronary artery calcifications. IMPRESSION: 1. TINY LEFT APICAL PNEUMOTHORAX. MINIMALLY DISPLACED FRACTURES OF THE LEFT ANTEROLATERAL RIB FRACTURES SIX, SEVEN AND EIGHT. 2. MINIMAL CONTUSION IN THE LINGULA. 3. MILDLY DILATED ASCENDING AORTA, 37 MM. JOB NUMBER: [id number] MTDD
== END 2017-09-02 23:05 | disposition short-term general hospital (02) ==
LOC: ER 21:06
DX: S22.42XA Multiple fractures of ribs, left side, initial encounter for closed fracture (principal); W01.190A Fall on same level from slipping, tripping and stumbling with subsequent striking against furniture, initial encounter; I10 Essential (primary) hypertension; Z91.81 History of falling
CPT/HCPCS: 71250; 80053; 85027; 93005; 93010; 96374; 96375; 99285; J1885

== ENCOUNTER 2018-05-12 12:16 | Emergency (ER) | payer MEDICARE ==
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
== END 2018-05-12 12:49 | disposition home or self-care (01) ==
LOC: ER 12:16
DX: H66.92 Otitis media, unspecified, left ear (principal); J06.9 Acute upper respiratory infection, unspecified
CPT/HCPCS: 99282

== ENCOUNTER 2018-11-21 11:39 | Emergency (ER) | payer MEDICARE ==
[2018-11-21] MEDS ORDERED: 0.9 % SODIUM CHLORIDE 1,000 ML BAG IV ONE (11:48)
[2018-11-21] MEDS ORDERED: MAGNESIUM HYDROXIDE/AL HYDROX 30 ML, LIDOCAINE VISC 2% 15ML 15 ML PO ONE ×2 (11:49)
[2018-11-21 12:12] LABS: ABSOLUTE NEUTROPHIL COUNT 3.04; BASO % 0.2 % (0-6); EOS % 2.5 % (0-6); GRAN % 58.4 % (47-80); HEMATOCRIT 39.5 % (35.0-47.0); HEMOGLOBIN 13.6 gm/dl (11.6-16.0); LYMPH % 27.8 % (16-45); MEAN CELL VOLUME 95.6 fl (81-97); MEAN CORPUSCULAR HEMOGLOBIN 32.9 pg (27-33); MEAN CORPUSCULAR HGB CONC 34.4 g/dl (32-36); MEAN PLATELET VOLUME 10.1 fl (7.4-10.4); MONO % 11.1 % (0-9); PLATELET COUNT 272 K/uL (130-400); RED BLOOD COUNT 4.13 M/uL (3.80-5.40); WHITE BLOOD COUNT W/O DIFF 5.2 K/uL (4.2-12.2)
[2018-11-21 12:24] LABS: BLOOD UREA NITROGEN 14 mg/dL (8-23); CREATININE 0.7 mg/dL (0.5-0.9); EST GLOMERULAR FILTRATION RATE > 60 mL/min
[2018-11-21 12:25] LABS: LIPASE 50 U/L (13-60); TOTAL PROTEIN 6.7 g/dL (6.6-8.7)
[2018-11-21 12:27] LABS: GLUCOSE,RANDOM 125 mg/dL (74-109)
[2018-11-21 12:29] LABS: ALT/SGPT 14 U/L (<33); AST/SGOT 28 U/L (10.0-35.0)
[2018-11-21 12:30] LABS: ALKALINE PHOSPHATASE 96 U/L (35-104)
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
[2018-11-21 12:42] LABS: BILIRUBIN,DIRECT < 0.2 mg/dL (0-0.3)
== END 2018-11-21 13:17 | disposition home or self-care (01) ==
LOC: ER 11:39
DX: K29.00 Acute gastritis without bleeding (principal); I10 Essential (primary) hypertension
CPT/HCPCS: 80048; 80076; 83690; 85025; 99283; 99285; J7030

== ENCOUNTER 2019-02-04 07:01 | Day surgery (SDC) | payer MEDICARE ==
[2019-02-04] MEDS ORDERED: LIDOCAINE 2% MDV (20MG/ML) 20ML VIAL IV ONE (07:02)
[2019-02-04] MEDS ORDERED: PROPOFOL 10 MG/ML VIAL IV ONE (07:02)
[2019-02-04] MEDS ORDERED: ALFENTANIL HCL 500 MCG/1ML, 2ML AMP IV ONE (07:02)
[2019-02-04] MEDS ORDERED: 0.9 % SODIUM CHLORIDE 1000ML 500 ML IV ONE (07:50)
[2019-02-04] MEDS ORDERED: LIDOCAINE 2% MDV (20MG/ML) 20ML VIAL INJ ONE (08:53)
[2019-02-04] MEDS ORDERED: TIMOLOL MALEATE 0.5% 5ML BTL OPTH ONE (08:53)
[2019-02-04] MEDS ORDERED: BRIMONIDINE TARTRATE 0.2% OPTHALMIC DROPS OP ONE (08:53)
[2019-02-04] MEDS ORDERED: EPINEPHRINE 1 MG/ML AMPUL IO ONE (08:53)
[2019-02-04] MEDS ORDERED: TETRACAINE HCL 0.5% OPTH 2ML SOLU OPTH ONE (08:53)
[2019-02-04] MEDS ORDERED: NEOM/BACI/POLY/HC 3.5 GM OPTH OINT OPTH ONE (08:53)
[2019-02-04] MEDS ORDERED: LIDOCAINE 1% MPF 100MG/10ML STERILE-PAK AMPULE SQ ONE (08:54)
[2019-02-04] MEDS ORDERED: TETRACAINE HCL 0.5% 15 ML OPTH BTL OPTH ONE (08:55)
--- NOTE | 2019-02-04 11:05 | OP NOTE CHAMES ---
DATE OF PROCEDURE: 02/04/2019 PREOPERATIVE DIAGNOSIS: Nuclear sclerotic and posterior subcapsular cataract, left eye. POSTOPERATIVE DIAGNOSIS: Nuclear sclerotic and posterior subcapsular cataract, left eye. OPERATION: Phacoemulsification of cataractous lens with implantation of intraocular lens. LENS IMPLANT USED: [employer] Willie Model PCB00 + 19.0 diopters. COMPLICATIONS: None. PROCEDURE IN DETAIL: Following a retrobulbar and facial block, the patient was prepped and draped in the usual fashion for eye surgery. A lid speculum was placed in the left eye after which a 2.4 mm tunnel wound was placed at the temporal limbus and dissected into clear cornea. A paracentesis was placed at 2 oclock hours to the left and right of the initial incision and the chamber deepened with Viscoelastic. The keratome was then used to enter the anterior chamber after which the continuous circular capsulorrhexis was accomplished without difficulty using a bent needle and a Utrata forceps. Hydrodissection and hydrodelineation of the lens was performed after which the nucleus of the lens was removed using the Phaco handpiece in the [id number] technique. The residual cortical material was irrigated and aspirated from the eye after which the bag and chamber were re-examined. The bag was re-inflated with Viscoelastic and the intraocular lens injected into the capsular bag where it centered well. The Viscoelastic was then copiously irrigated and aspirated from the eye after which the temporal tunnel wound and paracentesis were hydrated and the wounds were examined. They were noted to be watertight. The lid speculum was removed from the eye and the eye patched and shielded. The patient was transferred to the recovery room in satisfactory condition and given an appointment to be reexamined in the clinic later today or as directed by Dr. Higgins. JOB NUMBER: [id number] MTDD
== END 2019-02-04 09:40 | disposition home or self-care (01) ==
LOC: SUR 07:01
PROVIDERS: ATTEND Ophthalmology
DX: H25.12 Age-related nuclear cataract, left eye (principal); I10 Essential (primary) hypertension; E78.00 Pure hypercholesterolemia, unspecified; M19.90 Unspecified osteoarthritis, unspecified site; K21.9 Gastro-esophageal reflux disease without esophagitis
CPT/HCPCS: J0171; J3490; J7030

== ENCOUNTER 2019-02-18 08:03 | Day surgery (SDC) | payer MEDICARE ==
[2019-02-18] MEDS ORDERED: LIDOCAINE 2% MDV (20MG/ML) 20ML VIAL IV ONE (08:04)
[2019-02-18] MEDS ORDERED: PROPOFOL 10 MG/ML VIAL IV ONE (08:04)
[2019-02-18] MEDS ORDERED: 0.9 % SODIUM CHLORIDE 1000ML 500 ML IV ONE (09:00)
[2019-02-18] MEDS ORDERED: BRIMONIDINE TARTRATE 0.2% OPTHALMIC DROPS OP ONE (09:52)
[2019-02-18] MEDS ORDERED: EPINEPHRINE 1 MG/ML AMPUL IO ONE (09:52)
[2019-02-18] MEDS ORDERED: TETRACAINE HCL 0.5% OPTH 2ML SOLU OPTH ONE (09:52)
[2019-02-18] MEDS ORDERED: NEOM/BACI/POLY/HC 3.5 GM OPTH OINT OPTH ONE (09:52)
[2019-02-18] MEDS ORDERED: LIDOCAINE 2% MDV (20MG/ML) 20ML VIAL INJ ONE (09:52)
[2019-02-18] MEDS ORDERED: TIMOLOL MALEATE 0.5% 5ML BTL OPTH ONE (09:52)
--- NOTE | 2019-02-19 08:19 | OP NOTE CHAMES ---
DATE OF PROCEDURE: 02/18/2019 PREOPERATIVE DIAGNOSIS: Nuclear sclerotic and cortical cataract, right eye. POSTOPERATIVE DIAGNOSIS: Nuclear sclerotic and cortical cataract, right eye. OPERATION: Phacoemulsification of cataractous lens with implantation of intraocular lens. LENS IMPLANT USED: [employer] Willie Model PCB00 + 18.5 diopters. COMPLICATIONS: None. PROCEDURE IN DETAIL: Following a retrobulbar and facial block, the patient was prepped and draped in the usual fashion for eye surgery. A lid speculum was placed in the right eye after which a 2.4 mm tunnel wound was placed at the temporal limbus and dissected into clear cornea. A paracentesis was placed at 2 oclock hours to the left and right of the initial incision and the chamber deepened with Viscoelastic. The keratome was then used to enter the anterior chamber after which the continuous circular capsulorrhexis was accomplished without difficulty using a bent needle and a Utrata forceps. Hydrodissection and hydrodelineation of the lens was performed after which the nucleus of the lens was removed using the Phaco handpiece in the [id number] technique. The residual cortical material was irrigated and aspirated from the eye after which the bag and chamber were re-examined. The bag was re-inflated with Viscoelastic and the intraocular lens injected into the capsular bag where it centered well. The Viscoelastic was then copiously irrigated and aspirated from the eye after which the temporal tunnel wound and paracentesis were hydrated and the wounds were examined. They were noted to be watertight. The lid speculum was removed from the eye and the eye patched and shielded. The patient was transferred to the recovery room in satisfactory condition and given an appointment to be reexamined in the clinic later today or as directed by Dr. Higgins. JOB NUMBER: [id number] [facility]
== END 2019-02-18 10:41 | disposition home or self-care (01) ==
LOC: SUR 08:03
PROVIDERS: ATTEND Ophthalmology
DX: H25.11 Age-related nuclear cataract, right eye (principal); I10 Essential (primary) hypertension; E78.00 Pure hypercholesterolemia, unspecified; M19.90 Unspecified osteoarthritis, unspecified site; K21.9 Gastro-esophageal reflux disease without esophagitis
CPT/HCPCS: J0171; J7030